=== PATIENT | male | born 1965 | race Caucasian/White ===

== ENCOUNTER → 2019-08-06 | Day surgery (SDC) | payer OTHER ==
[~2019-08-06] MED LIST: OMEPRAZOLE40 MG PO; ZESTRIL5 MG PO
[2019-08-06 12:34] LABS: HEMATOCRIT 46.7 % (42.0-52.0); HEMOGLOBIN 16.4 gm/dL (14.0-18.0); MCH 31.7 pg (26.0-34.0); MCHC 35.1 g/dL (28.0-37.0); MCV 90.5 fL (80.0-100.0); MPV 10.4 fl. (7.2-11.1); RBC 5.16 mil/uL (4.50-6.00); RDW-CV 12.8 % (10.5-14.5); WBC 6.7 thou/uL (4.0-11.0)
[2019-08-06 12:42] LABS: CALCIUM 9.1 mg/dL (8.5-10.1); POTASSIUM 3.7 mmol/L (3.5-5.1)
[2019-08-06 12:47] LABS: ALBUMIN 3.9 g/dL (3.4-5.0); TOTAL BILIRUBIN 0.6 mg/dL (<0.1-1.0); TOTAL PROTEIN 7.4 g/dL (6.4-8.2)
--- NOTE | 2019-08-06 15:43 | EKG ---
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
== END | disposition home or self-care (01) ==
LOC: M.SUR 08:54
PROVIDERS: Internal Medicine Gastroenterology
DX: K22.70 Barrett's esophagus without dysplasia (principal); K44.9 Diaphragmatic hernia without obstruction or gangrene; I10 Essential (primary) hypertension; K21.9 Gastro-esophageal reflux disease without esophagitis; Z98.52 Vasectomy status; Z98.890 Other specified postprocedural states; Z79.899 Other long term (current) drug therapy